=== PATIENT | male | born 1995 | race Hispanic/Latino ===

== ENCOUNTER → 2025-05-08 16:39 | Outpatient (CLI) | payer OTHER, SELFPAY ==
--- NOTE | 2025-05-08 16:45 | DI.RAD.S_ITS ---
PROCEDURE: XR FINGER LT MIN 2V
== END ==
LOC: RAD 16:44
PROVIDERS: Referring Provider Chiropractor; Visit Provider Chiropractor
DX: S62.631A Displaced fracture of distal phalanx of left index finger, initial encounter for closed fracture (principal); S60.022A Contusion of left index finger without damage to nail, initial encounter; S61.211A Laceration without foreign body of left index finger without damage to nail, initial encounter; X58.XXXA Exposure to other specified factors, initial encounter
CPT/HCPCS: 73140